=== PATIENT | female | born 1990 | race Caucasian/White ===

== ENCOUNTER 2016-09-12 14:05 | Emergency (ER) | payer SELFPAY ==
[2016-09-12] MEDS ORDERED: IBUPROFEN 600 MG TABLET PO ONE (14:42)
--- NOTE | 2016-09-12 14:42 | ER Document Report ---
ED Medical Screen (RME) - General Stated Complaint: POSSIBLE L HAND BURN Time seen by provider: 14:38 Mode of Arrival: Ambulatory Information source: Patient Notes: 26-year-old female presents to ED for corbett to her left hand at the web between her first and second finger and third finger. She states she was heating the wax for a wax job with them of the wax buildup on her hand and she immediately covered it with ice. The top flare of her skin is second degree corbett to the first second and third finger mostly the lab between the first and second finger and hand. Last menstrual period 08/18/2016. She states the middle of the burn is numb but she does have pain on the edges which are very painful. I have greeted and performed a rapid initial assessment of this patient. A comprehensive ED assessment and evaluation of the patient, analysis of test results and completion of medical decision making process will be conducted by an additional ED providers. TRAVEL OUTSIDE OF THE [place] IN LAST 30 DAYS: Yes - Related Data Allergies/Adverse Reactions: acetaminophen [Acetaminophen] Allergy (Verified 07/11/15 15:00) Past Medical History Pulmonary Medical History: Reports: Hx Bronchitis - Immunizations Immunizations up to date: Yes Hx Diphtheria, Pertussis, Tetanus Vaccination: Yes
--- NOTE | 2016-09-12 16:29 | ER Document Report ---
ED General - General Chief Complaint: Burn Stated Complaint: POSSIBLE L HAND BURN Mode of Arrival: Ambulatory Information source: Patient Notes: 18-year-old female presents with corbett to left hand 2 days ago. Patient denies any other injuries notes it was due to wax. Patient is able to move her digits denies any neurological deficits denies any signs of infection patient has been using Neosporin TRAVEL OUTSIDE OF THE [place] IN LAST 30 DAYS: Yes - HPI Onset: Other - 2 day duration Onset/Duration: Persistent Quality of pain: Burning Severity: Mild Pain Level: 1 Associated symptoms: Other Exacerbated by: Denies Relieved by: Denies Similar symptoms previously: No Recently seen / treated by doctor: No - Related Data Allergies/Adverse Reactions: acetaminophen [Acetaminophen] Allergy (Verified 09/12/16 14:41) Past Medical History - General Information source: Patient - Social History Smoking Status: Never Smoker Cigarette use (# per day): No Chew tobacco use (# tins/day): No Smoking Education Provided: No Frequency of alcohol use: None Family History: Reviewed & Not Pertinent Patient has suicidal ideation: No Patient has homicidal ideation: No Pulmonary Medical History: Reports: Hx Bronchitis Renal/ Medical History: Denies: Hx Peritoneal Dialysis Surgical Hx: Negative - Immunizations Immunizations up to date: Yes Hx Diphtheria, Pertussis, Tetanus Vaccination: Yes Review of Systems - Review of Systems Notes: REVIEW OF SYSTEMS: CONSTITUTIONAL : Denies fever, chills, or sweats. Denies recent illness. EENT: Denies eye, ear, throat, or mouth pain or symptoms. Denies nasal or sinus congestion or discharge. Denies throat, tongue, or mouth swelling or difficulty swallowing. CARDIOVASCULAR: Denies chest pain. Denies palpitations or racing or irregular heart beat. Denies ankle edema. RESPIRATORY: Denies cough, cold, or chest congestion. Denies shortness of breath, difficulty breathing, or wheezing. GASTROINTESTINAL: Denies abdominal pain or distention. Denies nausea, vomiting , or diarrhea. Denies blood in vomitus, stools, or per rectum. Denies black, tarry stools. Denies constipation. GENITOURINARY: Denies difficulty urinating, painful urination, burning, frequency, blood in urine, or discharge. FEMALE GENITOURINARY: Denies vaginal bleeding, heavy or abnormal periods, irregular periods. Denies vaginal discharge or odor. MUSCULOSKELETAL: Denies back or neck pain or stiffness. Denies joint pain or swelling. SKIN: Admits to burn to left hand HEMATOLOGIC : Denies easy bruising or bleeding. LYMPHATIC: Denies swollen, enlarged glands. NEUROLOGICAL: Denies confusion or altered mental status. Denies passing out or loss of consciousness. Denies dizziness or lightheadedness. Denies headache. Denies weakness or paralysis or loss of use of either side. Denies problems with gait or speech. Denies sensory loss, numbness, or tingling. Denies seizures. PSYCHIATRIC: Denies anxiety or stress. Denies depression, suicidal ideation, or homicidal ideation. ALL OTHER SYSTEMS REVIEWED AND NEGATIVE. Dictation was performed using [employer] voice recognition software PHYSICAL EXAMINATION: GENERAL: Well-appearing, well-nourished and in no acute distress. HEAD: Atraumatic, normocephalic. EYES: Pupils equal round extraocular movements intact, conjunctiva are normal. ENT: Nares patent NECK: Normal range of motion LUNGS: No respiratory distress Musculoskeletal: Normal range of motion NEUROLOGICAL: Normal speech, normal gait. PSYCH: Normal mood, normal affect. SKIN: Second-degree corbett between the first and second digits on the left hand and on the third digit no circumferential corbett there is no secondary sign of infection Physical Exam - Vital signs Vitals: Temp Pulse Resp BP Pulse Ox 98.4 F 87 19 118/70 100 09/12/16 14:36 09/12/16 14:36 09/12/16 14:36 09/12/16 14:36 09/12/16 14:36 Course - Re-evaluation Re-evalutation: 09/12/16 20:33 Pts vital signs on discharge are completely incorrect. Patient had minor corbett with no other complications she'll be discharged home with antibiotics if there is any sign of infection as well so versus sulfadiazine and very strict return precautions After performing a Medical Screening Examination, I estimate there is LOW risk for ACUTE CORONARY SYNDROME, RESPIRATORY FAILURE, SEPSIS OR MENINGITIS, thus I consider the discharge disposition reasonable. The patient and I have discussed the diagnosis and risks, and we agree with discharging home with close follow- up. We also discussed returning to the Emergency Department immediately if new or worsening symptoms occur. We have discussed the symptoms which are most concerning (e.g., changing or worsening pain, trouble swallowing or breathing, neck stiffness, fever) that necessitate immediate return. - Vital Signs Vital signs: Temp Pulse Resp BP Pulse Ox 98.3 F 44 L 16 91/66 L 73 L 09/12/16 16:47 09/12/16 16:47 09/12/16 16:47 09/12/16 16:47 09/12/16 16:47 Discharge - Discharge Clinical Impression: Pain of left hand Burn, hands, second degree Qualifiers: Encounter type: initial encounter Laterality: left Qualified Code(s): T23.202A - Burn of second degree of left hand, unspecified site, initial encounter Condition: Stable Disposition: HOME, SELF-CARE Instructions: Silvadene Cream (OM), Corbett (OM) Additional Instructions: Follow up with your physician tomorrow for further care or return to the ED IMMEDIATELY if symptoms worsen or new concerns occur Prescriptions: Clindamycin HCl 300 mg PO Q6 #40 capsule Silver Sulfadiazine 20 gm TP BID #1 cream..g. Tramadol HCl 50 mg PO Q8 #20 tablet
[2016-09-12 16:54] VITALS: BP 91/66
== END 2016-09-12 16:58 | disposition home or self-care (01) ==
LOC: ER 14:05
DX: T23.202A Burn of second degree of left hand, unspecified site, initial encounter (principal); T23.222A Burn of second degree of single left finger (nail) except thumb, initial encounter; X12.XXXA Contact with other hot fluids, initial encounter; Y93.89 Activity, other specified; Z88.6 Allergy status to analgesic agent
CPT/HCPCS: 99283